=== PATIENT | male | born 1940 | race Caucasian/White ===

== ENCOUNTER 2024-03-26 08:17 | Day surgery (SDC) | payer MEDICARE, OTHER ==
[2024-03-25 14:46] LABS: BASOPHILS # (AUTO) 0.1 X10'3 (0-0.2); BASOPHILS % (AUTO) 0.8 % (0-1); EOSINOPHILS # (AUTO) 0.3 X10'3 (0-0.9); EOSINOPHILS % (AUTO) 3.8 % (0-6); LYMPHOCYTES # (AUTO) 1.8 X10'3 (1.1-4.8); MEAN CORPUSCULAR HEMOGLOBIN 32.1 PG (27.0-31.0); MEAN CORPUSCULAR HGB CONC 33.4 g/dL (33.0-36.5); MEAN CORPUSCULAR VOLUME 96.2 FL (78-98); MEAN PLATELET VOLUME 8.6 FL (7.4-10.4); MONOCYTES # (AUTO) 0.7 X10'3 (0-0.9); MONOCYTES % (AUTO) 10.4 % (2-12); PRE OP HEMOGLOBIN 17.4 g/dL (14.0-17.9); PRE OP PLATELET COUNT 252 X10'3 (140-440); PRE OP WHITE BLOOD COUNT 6.8 10'3 (4.8-10.8)
[2024-03-25 14:57] LABS: ALBUMIN 3.5 G/DL (3.4-5.0); ALBUMIN/GLOBULIN RATIO 0.9 (1.1-1.5); ALKALINE PHOSPHATASE 67 IU/L (46-116); BLOOD UREA NITROGEN 15 MG/DL (7-18); BUN/CREATININE RATIO 12.7 (10.0-20.0); CALCIUM 9.3 MG/DL (8.5-10.1); CHLORIDE 106 MMOL/L (99-107); CREATININE 1.18 MG/DL (0.60-1.10); PRE OP ALT 17 U/L (30-65); PRE OP ANION GAP 4 (8-16); PRE OP AST 14 U/L (10-37); PRE OP BILIRUB, TOTAL 0.5 MG/DL (0.0-1.0); PRE OP GLUCOSE 112 MG/DL (70-104); PRE OP POTASSIUM 4.7 MMOL/L (3.4-5.1); PRE OP SODIUM 142 MMOL/L (135-145); TOTAL CARBON DIOXIDE 31.7 MMOL/L (24-32); TOTAL PROTEIN 7.2 G/DL (6.4-8.2); eCRCL 49 ML/MIN; eGFR 59 ML/MIN
[2024-03-26] VITALS (7 sets, daily range): BP systolic 122–146; BP diastolic 72–86; PULSE 62–73; RESP 12–16; TEMP 98.1; O2SAT 95–100
[~2024-03-26] VITALS: Ht 177.8 cm; Wt 68.9 kg
[~2024-03-26 08:17] MED LIST: ALBU18HF2 INH; FINA5TAB11 PO; FLO0.4C PO; FLUT1BLS4 INH
[2024-03-26] MEDS ORDERED: morphine 4 MG/ML inj SYRINge IV PRN (08:20)
[2024-03-26] MEDS ORDERED: labetalol 20mg/4ml (5mg/ml) syringe IV PRN (08:20)
[2024-03-26] MEDS ORDERED: morphine 2 MG/ML inj. syringe IV PRN (08:20)
[2024-03-26] MEDS ORDERED: proCHLORperazine 10 MG/2 ml inj IV PRN (08:20)
[2024-03-26] MEDS ORDERED: ringers solution, lacted 1,000 ML IV SCH (08:20)
[2024-03-26] MEDS ORDERED: ondansetron/PF 4mg/2ml inj IV PRN (08:20)
[2024-03-26] MEDS ORDERED: meperidine/PF 25mg/ml syringe IV PRN ×3 (08:20)
[2024-03-26] MEDS ORDERED: enalaprilat dihydrate 2.5mg/2ml vial IV PRN (08:20)
[2024-03-26] MEDS: famotidine 20mg tablet PO ONE (09:23)
[2024-03-26] MEDS: ringers solution, lacted 1,000 ML IV SCH (09:24)
[2024-03-26] MEDS ORDERED: sevoflurane 250ml liquid IH ONE (11:08)
[2024-03-26] MEDS ORDERED: fentaNYL/PF 50MCG/1 ML 2ML syringe ONE (11:15)
[2024-03-26] MEDS ORDERED: midazolam 1 mg/ML 2ml injection ONE (11:16)
[2024-03-26] MEDS ORDERED: ondansetron/PF 4mg/2ml inj ONE ×2 (12:33→12:42)
[2024-03-26] MEDS ORDERED: LIDOcaine 2% (20mg/ml) 5ml vial ONE (12:33)
[2024-03-26] MEDS ORDERED: propofol inj 20 ML IV ONE (12:33)
== END 2024-03-26 13:47 | disposition home or self-care (01) ==
LOC: PAS 08:17
PROVIDERS: ATTEND Internal Medicine Critical Care Medicine
DX: R22.2 Localized swelling, mass and lump, trunk (principal); E11.9 Type 2 diabetes mellitus without complications; J43.9 Emphysema, unspecified; I50.9 Heart failure, unspecified; Z87.891 Personal history of nicotine dependence; Z86.73 Personal history of transient ischemic attack (TIA), and cerebral infarction without residual deficits; Z79.899 Other long term (current) drug therapy; Z98.890 Other specified postprocedural states
CPT/HCPCS: 31628; 31629; 31653; 36415; 71250; 80053; 82948; 85025; 88341; 94760; A4618; J1100; J2003; J2250; J2405; J2704; J2710; J3010; J3490; J7120; Z7506; Z7508; Z7512; Z7610; 31622; 31624; 31625; 31626; 31627; 31654; 88173; 88305; 88342

== ENCOUNTER 2024-08-04 12:27 | Outpatient (CLI) | payer MEDICARE, OTHER ==
[~2024-08-04 12:27] MED LIST changes: -FLO0.4C PO; +TAMS-55 PO
[2024-08-04 13:41] LABS: BILIRUBIN,URINE NEGATIVE (Neg); CLARITY,URINE CLEAR (Clear); COLOR,URINE YELLOW (Yellow); GLUCOSE, URINE NEGATIVE (Neg); KETONES,URINE NEGATIVE (Neg); LEUKOCYTE ESTERASE ,URINE NEGATIVE (Neg); NITRITES, URINE NEGATIVE (Neg); OCCULT BLOOD,URINE NEGATIVE (Neg); PROTEIN,URINE NEGATIVE (Neg); UROBILINOGEN,URINE 0.2 E.U/dL (0.2-1.0)
[2024-08-04 13:43] LABS: UA COLLECTION TYPE CLN CATCH MIDSTREAM
[2024-08-04 13:44] LABS: BASOPHILS % (AUTO) 0.4 % (0-1); EOSINOPHILS # (AUTO) 0.1 X10'3 (0-0.9); EOSINOPHILS % (AUTO) 1.3 % (0-6); LYMPHOCYTES # (AUTO) 1.9 X10'3 (1.1-4.8); MEAN CORPUSCULAR HEMOGLOBIN 31.9 PG (27.0-31.0); MEAN CORPUSCULAR HGB CONC 32.8 g/dL (33.0-36.5); MEAN CORPUSCULAR VOLUME 97.5 FL (78-98); MEAN PLATELET VOLUME 8.3 FL (7.4-10.4); MONOCYTES # (AUTO) 0.8 X10'3 (0-0.9); MONOCYTES % (AUTO) 8.9 % (2-12); NEUTROPHILS # (AUTO) 6.2 X10'3 (1.8-7.7); NEUTROPHILS % (AUTO) 68.4 % (42-75); PRE OP HEMATOCRIT 49.4 % (42.0-52.0); PRE OP HEMOGLOBIN 16.2 g/dL (14.0-17.9); PRE OP PLATELET COUNT 344 X10'3 (140-440); PRE OP WHITE BLOOD COUNT 9.1 10'3 (4.8-10.8); RED BLOOD COUNT 5.07 X10'6 (4.70-6.10); RED CELL DISTRIBUTION WIDTH 14.2 % (11.5-14.5)
[2024-08-04 13:52] LABS: PRE OP PROTIME 10.6 SECONDS (9.0-12.0)
[2024-08-04 13:58] LABS: ALBUMIN 3.2 G/DL (3.4-5.0); ALBUMIN/GLOBULIN RATIO 0.7 (1.1-1.5); ALKALINE PHOSPHATASE 90 IU/L (46-116); BLOOD UREA NITROGEN 16 MG/DL (7-18); BUN/CREATININE RATIO 17.2 (10.0-20.0); CALCIUM 8.9 MG/DL (8.5-10.1); CHLORIDE 106 MMOL/L (99-107); CREATININE 0.93 MG/DL (0.60-1.10); PRE OP ALT 25 U/L (30-65); PRE OP ANION GAP 3 (8-16); PRE OP AST 14 U/L (10-37); PRE OP BILIRUB, TOTAL 0.3 MG/DL (0.0-1.0); PRE OP GLUCOSE 113 MG/DL (70-104); PRE OP POTASSIUM 4.4 MMOL/L (3.4-5.1); PRE OP SODIUM 141 MMOL/L (135-145); TOTAL CARBON DIOXIDE 32.2 MMOL/L (24-32); TOTAL PROTEIN 7.7 G/DL (6.4-8.2); eGFR 78 ML/MIN
[2024-08-04 14:07] LABS: ABG BASE EXCESS -1.5 mmol/L (-2.0-3.0); ABG HCO3 22.3 mmol/L (21.0-28.0); ABG OXYGEN SATURATION 92.7 % (94.0-98.0); ABG PCO2 (T) 35.2 mmHg (35.0-48.0); ABG PO2 (T) 65.4 mmHg (83.0-108.0); ALLEN'S TEST POSITIVE; FCOHb 0.6 % (0.5-1.5); FHHb 7.2 % (0.0-5.0); FMetHb 0.3 % (0.0-1.5); FO2Hb 91.9 % (94.0-98.0); MODE ROOM AIR; TOTAL HEMOGLOBIN 15.9 G/dl (13.5-17.5)
== END 2024-08-04 23:59 | disposition home or self-care (01) ==
LOC: LAB 12:27 → EDSTATUS 08-13 09:45
PROVIDERS: ATTEND Surgery
DX: Z01.818 Encounter for other preprocedural examination (principal); D38.1 Neoplasm of uncertain behavior of trachea, bronchus and lung; R07.9 Chest pain, unspecified
CPT/HCPCS: 36415; 36600; 71046; 80053; 81003; 82803; 85018; 85025; 85610; 85730; 86885; 86900; 86901

== ENCOUNTER 2024-08-30 05:33 | Inpatient (IN) | payer MEDICARE, OTHER ==
[2024-08-30] VITALS (34 sets, daily range): BP systolic 125–152; BP diastolic 55–75; PULSE 61–122; RESP 10–24; TEMP 98.1; O2SAT 83–100
[~2024-08-30] VITALS: Ht 177.8 cm; Wt 70.3 kg
[2024-08-30] MEDS: ringers solution, lacted 1,000 ML IV SCH ×3 (06:20→21:30)
[2024-08-30] MEDS: famotidine 20mg tablet PO ONE (06:20)
[2024-08-30] MEDS: ceFAZolin 2gm in dextrose, iso 50 ML IV ONE (06:21)
[2024-08-30 06:39] LABS: BASOPHILS % (AUTO) 0.7 % (0-1); EOSINOPHILS # (AUTO) 0.2 X10'3 (0-0.9); EOSINOPHILS % (AUTO) 4.7 % (0-6); HEMATOCRIT 49.2 % (42.0-52.0); HEMOGLOBIN 16.1 g/dl (14.0-17.9); LYMPHOCYTES # (AUTO) 1.6 X10'3 (1.1-4.8); LYMPHOCYTES % (AUTO) 30.1 % (21-51); MEAN CORPUSCULAR HEMOGLOBIN 31.5 PG (27.0-31.0); MEAN CORPUSCULAR HGB CONC 32.7 g/dL (33.0-36.5); MEAN CORPUSCULAR VOLUME 96.2 FL (78-98); MEAN PLATELET VOLUME 8.5 FL (7.4-10.4); MONOCYTES # (AUTO) 0.6 X10'3 (0-0.9); MONOCYTES % (AUTO) 12.3 % (2-12); NEUTROPHILS # (AUTO) 2.7 X10'3 (1.8-7.7); NEUTROPHILS % (AUTO) 52.2 % (42-75); PLATELET COUNT 241 X10'3 (140-440); RED BLOOD COUNT 5.11 X10'6 (4.70-6.10); RED CELL DISTRIBUTION WIDTH 14.5 % (11.5-14.5); WHITE BLOOD COUNT 5.3 X10'3 (4.5-11.0)
[2024-08-30] MEDS ORDERED: BUPIVAcaine 2.5mg/ml inj 50ml vial (contains preservative) ONE (06:42)
[2024-08-30] MEDS ORDERED: INDOCYANINE GREEN 25 MG/10 ML VIAL IV ONE (06:42)
[2024-08-30] MEDS ORDERED: BUPIVACAINE liposomal/PF 13.3 MG/ML 10mL vial IM ONE (06:43)
[2024-08-30 06:56] LABS: APTT 26 SECONDS (22-32); PROTHROMBIN TIME 10.4 SECONDS (9.0-12.0)
[2024-08-30 07:03] LABS: ALANINE AMINOTRANSFERASE 19 U/L (12-78); ALBUMIN 3.3 G/DL (3.4-5.0); ALKALINE PHOSPHATASE 77 IU/L (46-116); ANION GAP 10 (8-16); ASPARTATE AMINO TRANSFERASE 11 U/L (10-37); BILIRUBIN,TOTAL 0.5 MG/DL (0.1-1.0); BLOOD UREA NITROGEN 16 MG/DL (7-18); CALCIUM 8.5 MG/DL (8.5-10.1); CHLORIDE 106 MMOL/L (99-107); CREATININE 0.89 MG/DL (0.60-1.10); GLUCOSE 107 MG/DL (70-104); POTASSIUM 4.5 MMOL/L (3.5-5.1); SODIUM 144 MMOL/L (135-145); TOTAL CARBON DIOXIDE 27.8 MMOL/L (24-32); TOTAL PROTEIN 6.5 G/DL (6.4-8.2); eCRCL 66 ML/MIN; eGFR 82 ML/MIN
--- NOTE | 2024-08-30 08:20 | RADIOLOGY REPORT ---
CLINICAL INFORMATION: Preoperative examination. Suspicious pulmonary nodule in the right lung apex. TECHNIQUE: Axial CT imaging of the chest was performed without IV contrast. Sagittal and coronal ref ormatted images were made, stored and reviewed. Evaluation is limited without IV contrast. One or mor e of the following dose reduction techniques were used: Automated exposure control. Adjustment of mA and/or kV according to patient size. CTDIvol = 11.68 mGy DLP = 456.62 mGy-cm COMPARISON: CT CT CHEST ION on DOS: 03/25/24, CT CHEST W/O CONTRAST on DOS: 10/17/23 FINDINGS: Aorta: Moderate to marked atherosclerotic calcification. No aneurysm. Cardiac: Heart size is within normal limits. Dense coronary artery calcification. Mediastinum/daria: Right lower paratracheal lymph nodes measure up to 0.8 cm in short axis dimension, with normal reniform shape and fatty daria, likely reactive lymph nodes. Calcified subcarinal and righ t hilar lymph nodes, may be seen with sequelae of granulomatous disease. Lungs: Spiculated nodule in the right lung apex measuring up to 1.7 cm, with spiculations extending t o the anterior and superior pleural surfaces. Marked emphysematous changes. There are scattered calci fied granulomas. Noncalcified nodule in the right lower lobe measures up to 5 mm (series 3, image 54) . Chest wall: No mass or other abnormality. Upper abdomen: Calcified granulomas in the liver and spleen. Small hiatal hernia. Bones: No fracture or suspicious intraosseous lesions. IMPRESSION: 1. Spiculated nodule in the right lung apex. 2. Scattered calcified granulomas. Small noncalcified nodule in the right lower lobe as described abo ve is indeterminate. 3. Additional nonacute findings as detailed above.
[2024-08-30 08:40] LABS: BILIRUBIN,URINE NEGATIVE (Neg); CLARITY,URINE CLEAR (Clear); COLOR,URINE YELLOW (Yellow); GLUCOSE, URINE NEGATIVE (Neg); KETONES,URINE NEGATIVE (Neg); LEUKOCYTE ESTERASE ,URINE NEGATIVE (Neg); NITRITES, URINE NEGATIVE (Neg); OCCULT BLOOD,URINE NEGATIVE (Neg); PROTEIN,URINE NEGATIVE (Neg); UROBILINOGEN,URINE 0.2 E.U/dL (0.2-1.0)
[2024-08-30 08:49] LABS: UA COLLECTION TYPE VOIDED
[2024-08-30] MEDS ORDERED: midazolam 1 mg/ML 2ml injection ONE (09:19)
[2024-08-30] MEDS ORDERED: fentaNYL /PF 50mcg/ml 5ml ampule ONE (09:19)
[2024-08-30] MEDS ORDERED: propofol inj 20 ML IV ONE (09:21)
[2024-08-30] MEDS ORDERED: LIDOcaine 2% (20mg/ml) 5ml vial ONE (09:21)
[2024-08-30] MEDS ORDERED: sevoflurane 250ml liquid IH ONE (09:22)
[2024-08-30] MEDS ORDERED: dexamethasone sod phosphate 4mg/ml inj. ONE (09:22)
[2024-08-30] MEDS ORDERED: rocuronium 10mg/ml inj IV ONE ×2 (09:22→13:13)
[2024-08-30] MEDS ORDERED: morphine 4 MG/ML inj SYRINge IV PRN (09:30)
[2024-08-30] MEDS ORDERED: enalaprilat 1.25mg/ml 2ml vial IV PRN (09:30)
[2024-08-30] MEDS ORDERED: meperidine/PF 25mg/ml syringe IV PRN ×3 (09:30)
[2024-08-30] MEDS ORDERED: ondansetron/PF 4mg/2ml inj IV PRN ×2 (09:30→13:30)
[2024-08-30] MEDS ORDERED: labetalol 20mg/4ml (5mg/ml) syringe IV PRN (09:30)
[2024-08-30] MEDS ORDERED: proCHLORperazine 10 MG/2 ml inj IV PRN (09:30)
[2024-08-30] MEDS ORDERED: morphine 2 MG/ML inj. syringe IV PRN (09:30)
[2024-08-30] MEDS ORDERED: methylPREDNISolone sod succ 125mg/2ml vial ONE (10:30)
[2024-08-30] MEDS ORDERED: albumin (Human) 5% 250ml 250 ML IV ONE (10:34)
[2024-08-30] MEDS: BUPIVAcaine/PF 2.5 mg/ml (0.25%) 30ml vial IJ ONE (10:48)
[2024-08-30] MEDS ORDERED: sugammadex 200mg/2ml injection IV ONE (13:06)
[2024-08-30] MEDS ORDERED: acetaminophen 1,000mg/100ml IV 100 ML IV ONE (13:09)
--- NOTE | 2024-08-30 13:22 | OPERATIVE REPORT ---
Operative Report Providers to CC ~ Date of Procedure: Aug 30, 2024 Pre-Operative Diagnosis: rul mass Post-Operative Diagnosis SAME as PRE-Op Procedure Performed robo rul/robo node dissection/robo rll wedge x 2/chest tube placement Surgeon: kasey Aleman none Anesthesiologist: Dale Macedo Type of Anesthesia: General Findings: rul nsclc Estimated Blood Loss: 200 ml Specimen Removed: multiple PATI ANDERSON MD Aug 30, 2024 13:22
[2024-08-30] MEDS ORDERED: metoclopramide 5 mg/ml inj IV PRN (13:30)
[2024-08-30] MEDS ORDERED: HYDROcodone/acetaminophen 10/325mg tab PO PRN (13:30)
[2024-08-30] MEDS ORDERED: potassium Cl 20mEq in D5-NS 1,000 ML IV SCH (13:30)
[2024-08-30] MEDS ORDERED: fentaNYL/PF 50MCG/1 ML 2ML syringe IV PRN (13:30)
[2024-08-30] MEDS ORDERED: albuterol 2.5 MG/3 ML nebule NEB PRN (13:30)
[2024-08-30] MEDS: fentaNYL/PF 50MCG/1 ML 2ML syringe IV PRN (13:34)
[2024-08-30 13:38] LABS: ABG BASE EXCESS -5.6 mmol/L (-2.0-3.0); ABG HCO3 23.2 mmol/L (21.0-28.0); ABG OXYGEN SATURATION 96.3 % (94.0-98.0); ABG PCO2 (T) 52.5 mmHg (35.0-48.0); ABG PH (T) 7.249 (7.350-7.450); ABG PO2 (T) 86.7 mmHg (83.0-108.0); FCOHb 1.3 % (0.5-1.5); FHHb 3.6 % (0.0-5.0); FLOW 7 L/min; FMetHb 0.1 % (0.0-1.5); MODE Simple Mask; PATIENT TEMPERATURE 34.6; TOTAL HEMOGLOBIN 15.6 G/dl (13.5-17.5)
[2024-08-30] MEDS: albuterol 2.5 MG/3 ML nebule NEB ONE (13:43)
[2024-08-30] MEDS: sodium bicarbonate (8.4%) 1 mEq/ml syringe IV ONE (13:45)
[2024-08-30] MEDS: LORazepam 2 mg/ml vial IV ONE (13:45)
[2024-08-30] MEDS: acetaminophen 1,000mg/100ml IV 100 ML IV ONE (13:53)
[2024-08-30] MEDS: fentaNYL/PF 50MCG/1 ML 2ML syringe ONE (13:53)
[2024-08-30] MEDS: ketorolac trometh 15mg/ml vial 15 MG/ML ML IV SCH (13:54)
[2024-08-30] MEDS: sodium bicarbonate (8.4%) inj. 1 MEQ/ML ML ONE (13:57)
--- NOTE | 2024-08-30 14:01 | RADIOLOGY REPORT ---
CLINICAL INFORMATION: Status post surgery. Right lung mass. TECHNIQUE: Single AP portable chest radiograph was obtained. COMPARISON: XR CHEST 1 VIEW on DOS: 11/13/23 FINDINGS: Lungs: Volume loss in the right lung consistent with recent right lung surgery, with associated media stinal shift to the right. Scattered areas of atelectasis in both lungs, right greater than left. The re is a chest tube in place extending to the right lung apex. No definite pneumothorax visualized. Po ssible small right pleural fluid collection in the right costophrenic angle. Cardiac: Heart size is within normal limits. Pulmonary vasculature: Unremarkable. Mediastinum/daria: Unremarkable. Bones: No acute osseous abnormality identified. Other: Prominent subcutaneous emphysema involving the neck soft tissues bilaterally and in the right chest wall. IMPRESSION: 1. Postsurgical changes consistent with recent right lung surgery with right chest tube in place. No definite pneumothorax visualized. 2. Suspected small right pleural fluid collection in the right costophrenic angle. 3. Prominent subcutaneous emphysema as described above.
[2024-08-30 14:51] LABS: ABG BASE EXCESS -3.9 mmol/L (-2.0-3.0); ABG HCO3 23.3 mmol/L (21.0-28.0); ABG OXYGEN SATURATION 93.7 % (94.0-98.0); ABG PH (T) 7.298 (7.350-7.450); ABG PO2 (T) 70.4 mmHg (83.0-108.0); FCOHb 1.4 % (0.5-1.5); FHHb 6.2 % (0.0-5.0); FLOW 3 L/min; FMetHb 0.3 % (0.0-1.5); FO2Hb 92.1 % (94.0-98.0); MODE NC; PATIENT TEMPERATURE 35.9; TOTAL HEMOGLOBIN 15.5 G/dl (13.5-17.5)
[2024-08-30] MEDS: albuterol 2.5 MG/3 ML nebule NEB SCH (14:54)
[2024-08-30] MEDS: HYDROmorphone inj. 0.5 MG/0.5 ML DISP.SYRIN IV PRN (15:29)
[2024-08-30] MEDS: ceFAZolin/D5W- 1GM premix 50 ML IV SCH (17:41)
[2024-08-30] MEDS: gabapentin 300mg capsule PO SCH (19:15)
[2024-08-30] MEDS: HYDROcodone/acetaminophen 10/325mg tab PO PRN (21:22)
[2024-08-31] VITALS (33 sets, daily range): BP systolic 109–141; BP diastolic 53–86; PULSE 61–86; RESP 10–21; TEMP 98–99.3; O2SAT 89–100
[2024-08-31 02:32] LABS: ALANINE AMINOTRANSFERASE 21 U/L (12-78); ALKALINE PHOSPHATASE 66 IU/L (46-116); ANION GAP 5 (8-16); ASPARTATE AMINO TRANSFERASE 17 U/L (10-37); BILIRUBIN,TOTAL 0.3 MG/DL (0.1-1.0); BLOOD UREA NITROGEN 12 MG/DL (7-18); BUN/CREATININE RATIO 13.6 (10.0-20.0); CALCIUM 7.9 MG/DL (8.5-10.1); CHLORIDE 103 MMOL/L (99-107); CREATININE 0.88 MG/DL (0.60-1.10); GLUCOSE 184 MG/DL (70-104); MAGNESIUM 1.8 MG/DL (1.5-2.4); PHOSPHORUS 3.8 MG/DL (2.3-4.5); POTASSIUM 4.9 MMOL/L (3.5-5.1); SODIUM 135 MMOL/L (135-145); TOTAL CARBON DIOXIDE 26.7 MMOL/L (24-32); TOTAL PROTEIN 6.1 G/DL (6.4-8.2); eCRCL 65 ML/MIN; eGFR 83 ML/MIN
[2024-08-31 02:42] LABS: BASOPHILS % (AUTO) 0.3 % (0-1); EOSINOPHILS % (AUTO) 0 % (0-6); HEMATOCRIT 44.2 % (42.0-52.0); HEMOGLOBIN 14.6 g/dl (14.0-17.9); LYMPHOCYTES # (AUTO) 0.5 X10'3 (1.1-4.8); LYMPHOCYTES % (AUTO) 4.4 % (21-51); MEAN CORPUSCULAR HEMOGLOBIN 31.9 PG (27.0-31.0); MEAN CORPUSCULAR HGB CONC 33.1 g/dL (33.0-36.5); MEAN CORPUSCULAR VOLUME 96.3 FL (78-98); MEAN PLATELET VOLUME 8.9 FL (7.4-10.4); MONOCYTES # (AUTO) 0.6 X10'3 (0-0.9); MONOCYTES % (AUTO) 5.2 % (2-12); NEUTROPHILS # (AUTO) 10.4 X10'3 (1.8-7.7); NEUTROPHILS % (AUTO) 90.1 % (42-75); PLATELET COUNT 216 X10'3 (140-440); RED BLOOD COUNT 4.59 X10'6 (4.70-6.10); WHITE BLOOD COUNT 11.5 X10'3 (4.5-11.0)
--- NOTE | 2024-08-31 04:46 | OPERATIVE REPORT ---
DATE OF SURGERY: 08/30/2024 DICTATING PHYSICIAN: Max Giraldo MD PREOPERATIVE DIAGNOSIS: Enlarging right upper lobe mass. POSTOPERATIVE DIAGNOSIS: Enlarging right upper lobe mass. PROCEDURES PERFORMED: * Robotic-assisted thoracoscopic right upper lobectomy. * Robotic-assisted thorascopic node dissection. * Robotic-assisted lobectomy resection x 2. * Chest tube placement. SURGEON: Max Giraldo MD INTERNAL SPECIALIST: Kevin. ANESTHESIA: General/Dr. Macedo. DRAINS: Chest tube x 1. INDICATIONS FOR OPERATION: An 83-year-old male who had an enlarging right upper lobe mass, taken to surgery after was suspicious for malignancy. INTRAOPERATIVE FINDINGS: The patient had a right upper lobe mass. Frozen section revealed non-small cell lung cancer. The patient also additionally had spots in the right lower lobe requiring a wedge resection x 2. DESCRIPTION OF PROCEDURE: The patient was placed supine on the operating table. After induction of general anesthesia and placement of endotracheal tube, the patient was turned in the left lateral decubitus position, prepped and draped. Incision was made in the posterior axillary line approximately to the level of the seventh intercostal space. A port was placed after the lung was deflated. An additional port was placed anteriorly and 2 ports placed posteriorly under fluoroscopic vision. An assist port was placed inferiorly. Robot was then brought to the field. Camera port docked. Camera placed, camera targeted. Additional ports were then docked and instruments placed. Chest was then explored. Right lower lobe was then retracted cephalad. Inferior pulmonary ligament was taken down. Lungs were then retracted anteriorly. Pleura was incised. Station 7 nodes identified and sent to pathology for evaluation. was somewhat calcified. The node was subsequently identified and sent to pathology for evaluation as well. Lungs were then retracted inferiorly. Mediastinal pleura was then incised and station 2 and 4 nodes identified and sent to pathology for evaluation. Lungs were then retracted posteriorly and right upper lobe pulmonary vein identified. Attention was then turned to the fissure where the PA was identified after fissures. Posterior fissure was then divided using multiple firings of Endo-JEANNINE and blue load. Posterior segment branch was then identified, isolated, and divided with the white load. Attention was then turned to the anterior apical trunk, identified, isolated and divided using multiple firings of white load. The patient had enlarged nodes in station 12 in the right upper lobe. These were removed and sent to pathology. Right upper lobe bronchus was then divided using green stapler #45. Minor fissure was then divided using multiple firings of blue load. The vein was identified, isolated, divided using a white load. Upper lobe was then from the lower lobe. There were multiple nodules in the right lower lobe, removed with multiple firings of blue lobe. Right lower lobectomy resections x 2 were performed. Right upper lobe was then placed in an Endobag in a lithotomy position. Robotic instruments were then removed, robot undocked from the field. Upper lobe was brought out through the assist port after it was extended. Chest was irrigated with large amount of antibiotic-containing solution. Tisseel was then used through the staple lines. Intercostal block was then performed using Exparel. A #20 chest tubes was then placed and directed apically. Lungs were then reexpanded. Incisions were then closed in layers. Chest was attached to Pleur-evac and the patient was transferred to recovery in stable condition after reversing from general anesthesia. Max Giraldo MD TID: [id number] RECEIPT: [id number] GUILLE/ADRIANNE/CJ
--- NOTE | 2024-08-31 05:40 | RADIOLOGY REPORT ---
EXAM: XR Chest, 1 View CLINICAL INDICATION: POST OP TECHNIQUE: Frontal view of the chest. COMPARISON: DI CHEST,SINGLE VIEW on DOS: 08/30/24, XR CHEST 1 VIEW on DOS: 11/13/23 FINDINGS: LUNGS AND PLEURAL SPACES: Bibasilar atelectasis or pneumonia. HEART: Unremarkable. No cardiomegaly. MEDIASTINUM: Unremarkable. Normal mediastinal contour. BONES/JOINTS: Unremarkable. No acute fracture. SOFT TISSUES: Right soft tissue emphysema. TUBES, LINES AND DEVICES: Right-sided chest tube. Small apical pneumothorax. OTHER FINDINGS: . . IMPRESSION: 1. Bibasilar atelectasis or pneumonia. 2. Right-sided chest tube. Small apical pneumothorax.
[2024-08-31] MEDS: furosemide 20 MG/2 ML vial IV ONE (11:35)
--- NOTE | 2024-08-31 18:14 | PROGRESS NOTE ---
Progress Note ID Providers to CC ~ Progress Note Progress Note: PAIN IMPROVING/VSS/LUNGS-SMALL LEAK/LABS NOTED A/P 1. S/P RUL-DOING WELL/CONT SUCTION PATI ANDERSON MD Aug 31, 2024 18:14
--- NOTE | 2024-08-31 22:56 | RADIOLOGY REPORT ---
Clinical History CHEST TUBE PLACEMENT, LUNG VIEWS Comparison CXR on 08/31/2024, 3 images. Technique: frontal chest x-ray Without Contrast NADEEN ARBOLEDA, [id number] Findings: Heart - normal lungs - no consolidation. right-sided chest tube. Right basilar pneumothorax bones - no acute fracture. Other- subcutaneous emphysema in the right chest Impression: 1. Right-sided chest tube. Small right basilar pneumothorax similar to prior examination 2. Subcutaneous emphysema in the right chest wall. This report was electronically signed by Gael Rivero MD on 08/31/2024 10:54:12 PM.
[2024-09-01] VITALS (21 sets, daily range): BP systolic 113–147; BP diastolic 68–82; PULSE 61–86; RESP 16–25; TEMP 97.6–98.2; O2SAT 92–96
[2024-09-01 06:19] LABS: BASOPHILS % (AUTO) 0.1 % (0-1); EOSINOPHILS % (AUTO) 0.2 % (0-6); HEMATOCRIT 45.7 % (42.0-52.0); LYMPHOCYTES # (AUTO) 1.3 X10'3 (1.1-4.8); LYMPHOCYTES % (AUTO) 10.6 % (21-51); MEAN CORPUSCULAR HEMOGLOBIN 31.4 PG (27.0-31.0); MEAN CORPUSCULAR HGB CONC 32.8 g/dL (33.0-36.5); MEAN CORPUSCULAR VOLUME 95.8 FL (78-98); MEAN PLATELET VOLUME 9.4 FL (7.4-10.4); NEUTROPHILS # (AUTO) 9.8 X10'3 (1.8-7.7); NEUTROPHILS % (AUTO) 81.1 % (42-75); PLATELET COUNT 215 X10'3 (140-440); RED BLOOD COUNT 4.77 X10'6 (4.70-6.10); WHITE BLOOD COUNT 12.1 X10'3 (4.5-11.0)
--- NOTE | 2024-09-01 06:35 | RADIOLOGY REPORT ---
EXAM: XR Chest, 1 View CLINICAL INDICATION: POST OP TECHNIQUE: Frontal view of the chest. COMPARISON: DI CHEST,SINGLE VIEW on DOS: 08/31/24, DI CHEST,SINGLE VIEW on DOS: 08/31/24, DI CHEST,SI NGLE VIEW on DOS: 08/30/24, XR CHEST 1 VIEW on DOS: 11/13/23 FINDINGS: LUNGS AND PLEURAL SPACES: See below. HEART: Unremarkable. No cardiomegaly. MEDIASTINUM: Unremarkable. Normal mediastinal contour. BONES/JOINTS: Unremarkable. No acute fracture. SOFT TISSUES: Redemonstration of soft tissue emphysema of the right chest wall. TUBES, LINES AND DEVICES: Right-sided chest tube. No pneumothorax. OTHER FINDINGS: . . . IMPRESSION: Right-sided chest tube. No pneumothorax.
[2024-09-01 06:39] LABS: ALANINE AMINOTRANSFERASE 21 U/L (12-78); ALBUMIN 3.2 G/DL (3.4-5.0); ALKALINE PHOSPHATASE 71 IU/L (46-116); ANION GAP 4 (8-16); ASPARTATE AMINO TRANSFERASE 18 U/L (10-37); BILIRUBIN,TOTAL 0.6 MG/DL (0.1-1.0); BLOOD UREA NITROGEN 18 MG/DL (7-18); BUN/CREATININE RATIO 23.7 (10.0-20.0); CALCIUM 8.5 MG/DL (8.5-10.1); CHLORIDE 103 MMOL/L (99-107); CREATININE 0.76 MG/DL (0.60-1.10); GLUCOSE 133 MG/DL (70-104); PHOSPHORUS 1.8 MG/DL (2.3-4.5); SODIUM 139 MMOL/L (135-145); TOTAL CARBON DIOXIDE 31.6 MMOL/L (24-32); TOTAL PROTEIN 6.4 G/DL (6.4-8.2); eCRCL 76 ML/MIN; eGFR > 90 ML/MIN
--- NOTE | 2024-09-01 12:01 | PATHOLOGY REPORT ---
[facility] [address] [place] [address] SURGICAL PATHOLOGY REPORT CaseNumber: [id number] Surgeon:Max Giraldo M.D. CLINICAL INFORMATION CLINICAL INFORMATION: Right lung cancer. DIAGNOSIS DIAGNOSIS: A.LYMPH NODES, STATION 7R, SURGICAL RESECTION - BENIGN ANTHRACOTIC LYMPH NODES (0/13) - ASSOCIATED FRAGMENTS OF NECROTIC TISSUE DIAGNOSIS: B.MASS, LUNG, RIGHT LOWER LOBE, WEDGE RESECTION - NODULE OF DYSTROPHIC CALCIFICATION (0.4 CM) - NO TUMOR INVOLVEMENT IS IDENTIFIED DIAGNOSIS: C.LYMPH NODES, STATION 11R, SURGICAL EXCISION - BENIGN ANTHRACOTIC LYMPH NODES (0/2) DIAGNOSIS: D.LYMPH NODES, STATIONS 2R AND 4R, SURGICAL EXCISI - BENIGN ANTHRACOTIC LYMPH NODES (0/12) DIAGNOSIS: E.LYMPH NODES, STATION 12R, SURGICAL EXCISION - BENIGN ANTHRACOTIC LYMPH NODES (0/9) DIAGNOSIS: F.MASS, LUNG, RIGHT UPPER LOBE, SURGICAL LOBECTOMY - 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 LYMPH NODES, STATION 7R, SURGICAL RESECTION MICROSCOPIC DESCRIPTION: Reviewed are four H&E-stained slides showing sections of tissue that is larg shayy necrotic and associated with areas of dystrophic calcification. However, portions of anthracotic -type lymph node tissue are also noted that are viable. There is no tumor involvement (0/13). B. MASS, LUNG, RIGHT LOWER LOBE, WEDGE RESECTION MICROSCOPIC DESCRIPTION: Reviewed are two H&E-stained slides showing sections of lung tissue with are as of tissue necrosis associated with an area of dystrophic calcification (0.4 cm). No tumor involve ment is identified. C. LYMPH NODES, STATION 11R, SURGICAL EXCISION MICROSCOPIC DESCRIPTION: Reviewed is a single H&E-stained slide showing sections of fragments of anth racotic-type lymph node tissue that are free of tumor involvement (0/2). D. LYMPH NODES, STATIONS 2R AND 4R, SURGICAL EXCISI MICROSCOPIC DESCRIPTION: Reviewed are two H&E-stained slides showing sections of fragments of anthrac otic-type lymph node tissue that are free of tumor involvement (0/12). E. LYMPH NODES, STATION 12R, SURGICAL EXCISION MICROSCOPIC DESCRIPTION: Reviewed is a single H&E-stained slide showing sections of fragments of anth racotic-type lymph node tissue that are free of tumor involvement (0/9). F. MASS, LUNG, RIGHT UPPER LOBE, SURGICAL LOBECTOMY MICROSCOPIC DESCRIPTION: Reviewed are eight H&E-stained slides and the associated frozen section slid e. The grossly described tumor (F1, F6-7) shows an invasive well to moderately differentiated squamo us cell carcinoma associated with keratin production. There are areas of tumor degeneration and necr osis that have a geographic appearance. There are areas suspicious for small vessel involvement. Th ere are no clear features of large vessel involvement. The pleural surfaces are clear of involvement . Sections of the bronchial margin and hilar vascular resection margins as well as the closest stapl ed parenchymal resection margin (F2, F3, and F5) are clear of tumor involvement. Three hilar lymph n odes are clear of tumor involvement (F2, F4; 0/3). GROSS DESCRIPTION A. LYMPH NODES, STATION 7R, SURGICAL RESECTION GROSS DESCRIPTION: Received in a container of formalin labeled with the patient's name, number, and i dentified as "station 7 node (R) lung" is a 3.7 x 2 x 1.5 cm aggregate of irregularly shaped pieces o f pink-gonsalves to black tissue. Sectioning reveals areas of calcification. The specimen is entirely submi tted as A1-A4 following decalcification. B. MASS, LUNG, RIGHT LOWER LOBE, WEDGE RESECTION GROSS DESCRIPTION: Received in a container of formalin labeled with the patient's name, number, and " right lung lower lobe resection" is a 3 x 1 x 0.6 cm lung wedge closed by a row of surgical lucrecia. The staple line is removed and the margins are marked with black ink. Sectioning reveals a 1 x 0.7 x 0.8 cm calcification. The specimen is decalcified and submitted as B1.Received in the same contain er is a 3 x 1 x 0.8 cm lung wedge which is closed by a row of surgical lucrecia. The staple line is r emoved and the margins are marked with black ink. Sectioning reveals a 0.7 x 0.7 x 0.6 cm calcificat ion. The specimen is decalcified and submitted in B2.The time at which the specimen was removed was 1055. The time at which the specimen was placed in formalin was 1256. C. LYMPH NODES, STATION 11R, SURGICAL EXCISION GROSS DESCRIPTION: Received in a container of formalin labeled with the patient's name, number, and i dentified as "station 11 node (R)" is a 1.2 x 0.8 x 0.4 cm irregularly shaped piece of pink-gonsalves to bl ack tissue. The specimen is entirely submitted as C1. The time at which the specimen was removed was 1055. The time at which the specimen was placed in formalin was 1256. (arb) D. LYMPH NODES, STATIONS 2R AND 4R, SURGICAL EXCISI GROSS DESCRIPTION: Received in a container of formalin labeled with the patient's name, number, and i dentified as "station 2 and 4 nodes right lung" is an irregularly shaped excision of fat which measur es 2 x 1.5 x 1 cm. The specimen is sectioned and entirely submitted as D1-D2. The time at which the s pecimen was removed was 1055. The time at which the specimen was placed in formalin was 1256. E. LYMPH NODES, STATION 12R, SURGICAL EXCISION GROSS DESCRIPTION: Received in a container of formalin labeled with the patient's name, number, and i dentified as "station 12 right lung" is a 2 x 2.2 x 0.8 cm irregularly shaped piece of pink-gonsalves to bl ack tissue. The specimen is sectioned and entirely submitted as E1. The time at which the specimen wa s removed was 1055. The time at which the specimen was placed in formalin was 1256. F. MASS, LUNG, RIGHT UPPER LOBE, SURGICAL LOBECTOMY GROSS DESCRIPTION: Received unfixed from the operating room labeled with the patient's name, number, and "right upper lobe" is a 164 g right upper lobectomy specimen which measures 11.5 x 10 x 3 cm. The pleura is smooth, shiny, and red-brown. There is a row of surgical lucrecia running along one edge of the specimen 11 cm long. The specimen is sectioned at the time of surgery by Dr. Huerta to reveal 0. 7 x 1.5 x 1.5 cm lobulated henson-gonsalves tumor. The tumor is present 3.5 cm from the hilum and 3.5 cm from the stapled bronchial resection margin. The tumor is present 5.5 cm from the closest stapled parench ymal resection margin. A portion of the tumor is submitted for frozen section by Dr. Huerta. INTRAOPERATIVE CONSULTATION WITH FROZEN SECTION DIAGNOSIS BY Dr. Huerta at 1319: "Squamous cell carc inoma" (Performed at [facility] [address] [place] [address]) Sectioning the remainder of the specimen fails to reveal further discrete mass lesion. Sections are submitted as follows: F1) Frozen section remnantF2) Bronchial resection marginF3) Hilar vascular resection marginsF4) Saida r lymph node candidatesF5) Closest stapled parenchymal resection margin en faceF6-F7) TumorF8) Repres entative uninvolved lung parenchyma The time at which the specimen was removed was 1242. The time at which the specimen was placed in fo rmalin was not provided. SYNOPTIC REPORT SYNOPTIC TEXT: LUNG Specimen Procedure: Lobectomy Specimen Laterality: Right Tumor Tumor Focality: Single focus Tumor Site: Upper lobe of lung Tumor Size Invasive Tumor Size: 1.5 Centimeters (cm) Histologic Type: Invasive squamous cell carcinoma, keratinizing Spread Through Air Spaces (RACHELE): Not applicable Visceral Pleura Invasion: Not identified Direct Invasion of Other Structures: Not applicable (no other structures present) Treatment Effect: No known presurgical therapy Lymphatic and / or Vascular Invasion: Present - Possible small vessel involvement Margins Margin Status for Invasive Tumor: All margins negative for invasive tumor Closest Margin(s) to Invasive Tumor: Bronchial; Vascular Distance from Invasive Tumor to Closest Margin: 3.5 cm Margin Status for Non-Invasive Tumor: Not applicable Regional Lymph Nodes Lymph Node(s) from Prior Procedures: No known prior lymph node sampling performed Regional Lymph Node Status: All regional lymph nodes negative for tumor Number of Lymph Nodes Examined: 37 Deepali Site(s) Examined: 2R: Upper paratracheal; 4R: Lower paratracheal; 10R: Hilar; 11R: Interlobar; 12R-14R: Intrapulmonary; Right node(s) - 7R pTNM Classification (AJCC Version 9) pT Category: pT1b pN Category: pN0 CAP [facility] [address] Release SYNOPTIC TEXT: LUNG Specimen Procedure: Lobectomy Specimen Laterality: Right Tumor Tumor Focality: Single focus Tumor Site: Upper lobe of lung Tumor Size Invasive Tumor Size: 1.5 Centimeters (cm) Histologic Type: Invasive squamous cell carcinoma, keratinizing Spread Through Air Spaces (RACHELE): Not applicable Visceral Pleura Invasion: Not identified Direct Invasion of Other Structures: Not applicable (no other structures present) Treatment Effect: No known presurgical therapy Lymphatic and / or Vascular Invasion: Present - Possible small vessel involvement Margins Margin Status for Invasive Tumor: All margins negative for invasive tumor Closest Margin(s) to Invasive Tumor: Bronchial; Vascular Distance from Invasive Tumor to Closest Margin: 3.5 cm Margin Status for Non-Invasive Tumor: Not applicable Regional Lymph Nodes Lymph Node(s) from Prior Procedures: No known prior lymph node sampling performed Regional Lymph Node Status: All regional lymph nodes negative for tumor Number of Lymph Nodes Examined: 37 Deepali Site(s) Examined: 2R: Upper paratracheal; 4R: Lower paratracheal; 10R: Hilar; 11R: Interlobar; 12R-14R: Intrapulmonary; Right node(s) - 7R pTNM Classification (AJCC Version 9) pT Category: pT1b pN Category: pN0 CAP [facility] 2023 Q4 Release Electronically signed by: Dionte Huerta M.D. 09/01/2024 11:20:00 AM
--- NOTE | 2024-09-01 20:50 | PROGRESS NOTE ---
Progress Note ID Providers to CC ~ Progress Note Progress Note: doing well/ continue suction PATI ANDERSON MD Sep 01, 2024 20:50
[2024-09-02] VITALS (20 sets, daily range): BP systolic 116–159; BP diastolic 66–93; PULSE 68–91; RESP 11–20; TEMP 97–98.1; O2SAT 91–99
[2024-09-02 06:30] LABS: BASOPHILS % (AUTO) 0.4 % (0-1); EOSINOPHILS # (AUTO) 0.2 X10'3 (0-0.9); EOSINOPHILS % (AUTO) 1.3 % (0-6); HEMATOCRIT 48.9 % (42.0-52.0); HEMOGLOBIN 16.2 g/dl (14.0-17.9); LYMPHOCYTES # (AUTO) 1.4 X10'3 (1.1-4.8); MEAN CORPUSCULAR HEMOGLOBIN 31.9 PG (27.0-31.0); MEAN CORPUSCULAR VOLUME 96.7 FL (78-98); MEAN PLATELET VOLUME 9.2 FL (7.4-10.4); MONOCYTES # (AUTO) 0.9 X10'3 (0-0.9); MONOCYTES % (AUTO) 8.2 % (2-12); NEUTROPHILS # (AUTO) 8.6 X10'3 (1.8-7.7); NEUTROPHILS % (AUTO) 77.1 % (42-75); PLATELET COUNT 208 X10'3 (140-440); RED BLOOD COUNT 5.06 X10'6 (4.70-6.10); WHITE BLOOD COUNT 11.1 X10'3 (4.5-11.0)
--- NOTE | 2024-09-02 06:40 | RADIOLOGY REPORT ---
EXAM: XR Chest, 1 View CLINICAL INDICATION: POST OP TECHNIQUE: Frontal view of the chest. COMPARISON: DI CHEST,SINGLE VIEW on DOS: 09/01/24, DI CHEST,SINGLE VIEW on DOS: 08/31/24, DI CHEST,SI NGLE VIEW on DOS: 08/31/24, DI CHEST,SINGLE VIEW on DOS: 08/30/24, XR CHEST 1 VIEW on DOS: 11/13/23 FINDINGS: LUNGS AND PLEURAL SPACES: Right-sided subcu emphysema. HEART: Unremarkable. No cardiomegaly. MEDIASTINUM: Unremarkable. Normal mediastinal contour. BONES/JOINTS: Unremarkable. No acute fracture. TUBES, LINES AND DEVICES: Right-sided chest tube. No pneumothorax. OTHER FINDINGS: . . . IMPRESSION: Right-sided chest tube. No pneumothorax.
[2024-09-02 06:56] LABS: ALANINE AMINOTRANSFERASE 18 U/L (12-78); ALBUMIN 3.1 G/DL (3.4-5.0); ALBUMIN/GLOBULIN RATIO 0.8 (1.1-1.5); ALKALINE PHOSPHATASE 76 IU/L (46-116); ANION GAP 5 (8-16); ASPARTATE AMINO TRANSFERASE 21 U/L (10-37); BILIRUBIN,TOTAL 1.1 MG/DL (0.1-1.0); BLOOD UREA NITROGEN 12 MG/DL (7-18); BUN/CREATININE RATIO 19.7 (10.0-20.0); CALCIUM 8.8 MG/DL (8.5-10.1); CHLORIDE 103 MMOL/L (99-107); CREATININE 0.61 MG/DL (0.60-1.10); GLUCOSE 132 MG/DL (70-104); MAGNESIUM 2.2 MG/DL (1.5-2.4); PHOSPHORUS 2.2 MG/DL (2.3-4.5); POTASSIUM 4.1 MMOL/L (3.5-5.1); SODIUM 138 MMOL/L (135-145); TOTAL CARBON DIOXIDE 30.1 MMOL/L (24-32); TOTAL PROTEIN 6.8 G/DL (6.4-8.2); eCRCL 94 ML/MIN; eGFR > 90 ML/MIN
--- NOTE | 2024-09-02 17:01 | PROGRESS NOTE ---
Progress Note ID Providers to CC ~ Progress Note Progress Note: doing well/trial of waterseal PATI ANDERSON MD September 02, 2024 17:01
[2024-09-02] MEDS: magnesium hydroxide 30ml (MOM) UD suspension PO SCH (22:00)
[2024-09-03] VITALS (19 sets, daily range): BP systolic 118–160; BP diastolic 64–85; PULSE 74–102; RESP 12–20; TEMP 97.5–98.3; O2SAT 90–97
--- NOTE | 2024-09-03 07:33 | RADIOLOGY REPORT ---
CLINICAL INFORMATION: Pneumothorax. TECHNIQUE: Single AP portable chest radiograph was obtained. COMPARISON: DI CHEST,SINGLE VIEW on DOS: 09/02/24, DI CHEST,SINGLE VIEW on DOS: 09/01/24, DI CHEST,SINGL E VIEW on DOS: 08/31/24 FINDINGS: Right chest tube in stable position. Possible small residual right apical pneumothorax. Mild atelecta sis in the lung bases. Slightly decreased subcutaneous emphysema in the right chest wall right side o f the base of the neck. IMPRESSION: Stable positioning of the right chest tube. Possible small residual right apical pneumothorax. No ot her significant interval change.
--- NOTE | 2024-09-03 07:44 | RADIOLOGY REPORT ---
CLINICAL INFORMATION: Postop. TECHNIQUE: Single AP portable chest radiograph was obtained. COMPARISON: DI CHEST,SINGLE VIEW on DOS: 09/02/24, DI CHEST,SINGLE VIEW on DOS: 09/01/24, DI CHEST,SINGL E VIEW on DOS: 08/31/24 FINDINGS: Right chest tube remains in place. The right pneumothorax appears slightly larger or more conspicuou s compared to the prior exam, likely small to moderate no other significant interval change. IMPRESSION: Right chest tube in stable position. Right pneumothorax appears slightly larger or more conspicuous compared to the prior exam, likely small to moderate in size. Correlate with clinical findings. Short interval follow-up chest radiograph or CT could be considered if clinically indicated.
[2024-09-03 07:55] LABS: BASOPHILS # (AUTO) 0.1 X10'3 (0-0.2); BASOPHILS % (AUTO) 0.5 % (0-1); EOSINOPHILS # (AUTO) 0.2 X10'3 (0-0.9); EOSINOPHILS % (AUTO) 2.1 % (0-6); HEMATOCRIT 49.7 % (42.0-52.0); HEMOGLOBIN 16.6 g/dl (14.0-17.9); LYMPHOCYTES # (AUTO) 1.4 X10'3 (1.1-4.8); LYMPHOCYTES % (AUTO) 13.8 % (21-51); MEAN CORPUSCULAR HEMOGLOBIN 32.1 PG (27.0-31.0); MEAN CORPUSCULAR HGB CONC 33.5 g/dL (33.0-36.5); MEAN CORPUSCULAR VOLUME 95.8 FL (78-98); MEAN PLATELET VOLUME 9.5 FL (7.4-10.4); MONOCYTES # (AUTO) 0.9 X10'3 (0-0.9); MONOCYTES % (AUTO) 8.9 % (2-12); NEUTROPHILS # (AUTO) 7.9 X10'3 (1.8-7.7); NEUTROPHILS % (AUTO) 74.7 % (42-75); PLATELET COUNT 239 X10'3 (140-440); RED BLOOD COUNT 5.19 X10'6 (4.70-6.10); RED CELL DISTRIBUTION WIDTH 13.7 % (11.5-14.5); WHITE BLOOD COUNT 10.5 X10'3 (4.5-11.0)
[2024-09-03 08:26] LABS: ALANINE AMINOTRANSFERASE 19 U/L (12-78); ALBUMIN 3.2 G/DL (3.4-5.0); ALBUMIN/GLOBULIN RATIO 0.8 (1.1-1.5); ALKALINE PHOSPHATASE 78 IU/L (46-116); ANION GAP 7 (8-16); ASPARTATE AMINO TRANSFERASE 19 U/L (10-37); BILIRUBIN,TOTAL 1.1 MG/DL (0.1-1.0); BLOOD UREA NITROGEN 16 MG/DL (7-18); BUN/CREATININE RATIO 22.5 (10.0-20.0); CALCIUM 9.2 MG/DL (8.5-10.1); CHLORIDE 102 MMOL/L (99-107); CREATININE 0.71 MG/DL (0.60-1.10); GLUCOSE 131 MG/DL (70-104); MAGNESIUM 2.4 MG/DL (1.5-2.4); PHOSPHORUS 2.4 MG/DL (2.3-4.5); POTASSIUM 4.1 MMOL/L (3.5-5.1); SODIUM 139 MMOL/L (135-145); TOTAL CARBON DIOXIDE 30.1 MMOL/L (24-32); eCRCL 81 ML/MIN; eGFR > 90 ML/MIN
[2024-09-03] MEDS ORDERED: albuterol 2.5 MG/3 ML nebule NEB PRN (13:45)
[2024-09-04] VITALS (19 sets, daily range): BP systolic 111–157; BP diastolic 66–98; PULSE 74–95; RESP 13–18; TEMP 97.3–98.3; O2SAT 90–98
--- NOTE | 2024-09-04 06:21 | RADIOLOGY REPORT ---
CHEST RADIOGRAPH Indication: POST OP Technique: Single frontal view of the chest was obtained COMPARISON: DI CHEST,SINGLE VIEW on DOS: 09/03/24, DI CHEST,SINGLE VIEW on DOS: 09/02/24, DI CHEST,SINGLE VIEW on DOS: 09/02/24, DI CHEST,SINGLE VIEW on DOS: 09/01/24, DI CHEST,SINGLE VIEW on DOS: 08/31/24 FINDINGS: Lines and Tubes: Right chest tube in satisfactory position. Lungs: Right lung volume loss. Pleura: No effusion. No pneumothorax. Cardiomediastinal contours: Subcutaneous emphysema along the right chest wall. Bones: Unremarkable IMPRESSION: No appreciable pneumothorax.
[2024-09-04 06:54] LABS: BASOPHILS % (AUTO) 0.4 % (0-1); EOSINOPHILS # (AUTO) 0.4 X10'3 (0-0.9); EOSINOPHILS % (AUTO) 3.7 % (0-6); HEMATOCRIT 47.4 % (42.0-52.0); HEMOGLOBIN 15.9 g/dl (14.0-17.9); LYMPHOCYTES # (AUTO) 1.2 X10'3 (1.1-4.8); LYMPHOCYTES % (AUTO) 12.1 % (21-51); MEAN CORPUSCULAR HEMOGLOBIN 32.1 PG (27.0-31.0); MEAN CORPUSCULAR HGB CONC 33.6 g/dL (33.0-36.5); MEAN CORPUSCULAR VOLUME 95.5 FL (78-98); MEAN PLATELET VOLUME 9.3 FL (7.4-10.4); MONOCYTES # (AUTO) 0.9 X10'3 (0-0.9); MONOCYTES % (AUTO) 9.6 % (2-12); NEUTROPHILS # (AUTO) 7.1 X10'3 (1.8-7.7); NEUTROPHILS % (AUTO) 74.2 % (42-75); PLATELET COUNT 242 X10'3 (140-440); RED BLOOD COUNT 4.96 X10'6 (4.70-6.10); RED CELL DISTRIBUTION WIDTH 13.9 % (11.5-14.5); WHITE BLOOD COUNT 9.5 X10'3 (4.5-11.0)
[2024-09-04 07:23] LABS: ALANINE AMINOTRANSFERASE 18 U/L (12-78); ALBUMIN 2.9 G/DL (3.4-5.0); ALBUMIN/GLOBULIN RATIO 0.8 (1.1-1.5); ALKALINE PHOSPHATASE 71 IU/L (46-116); ANION GAP 9 (8-16); ASPARTATE AMINO TRANSFERASE 15 U/L (10-37); BILIRUBIN,TOTAL 0.9 MG/DL (0.1-1.0); BLOOD UREA NITROGEN 20 MG/DL (7-18); BUN/CREATININE RATIO 27.4 (10.0-20.0); CALCIUM 8.6 MG/DL (8.5-10.1); CHLORIDE 103 MMOL/L (99-107); CREATININE 0.73 MG/DL (0.60-1.10); GLUCOSE 126 MG/DL (70-104); MAGNESIUM 2.5 MG/DL (1.5-2.4); PHOSPHORUS 2.8 MG/DL (2.3-4.5); POTASSIUM 3.6 MMOL/L (3.5-5.1); SODIUM 141 MMOL/L (135-145); TOTAL CARBON DIOXIDE 29.1 MMOL/L (24-32); TOTAL PROTEIN 6.5 G/DL (6.4-8.2); eCRCL 79 ML/MIN; eGFR > 90 ML/MIN
[2024-09-04] MEDS: tamsulosin 0.4mg capsule PO SCH (09:57)
[2024-09-04] MEDS: finasteride 5mg tablet PO SCH (09:58)
[2024-09-04] MEDS: Fluticasone/Umeclidin/Vilanter (Trelegy Ellipta 100-62.5-25) IH SCH (09:58)
--- NOTE | 2024-09-04 13:58 | PROGRESS NOTE ---
Progress Note ID Providers to CC ~ Progress Note Progress Note: no complaints/vss/lungs-? small leak/cxr improved a/p 1. s/p rul-doing well/cont suction PATI ANDERSON MD September 04, 2024 13:58
[2024-09-04] MEDS: enoxaparin 40mg/0.4ml syringe SUBCUT SCH (19:52)
[2024-09-05] VITALS (20 sets, daily range): BP systolic 111–131; BP diastolic 63–77; PULSE 73–100; RESP 8–20; TEMP 97.2–98.1; O2SAT 91–98
--- NOTE | 2024-09-05 06:05 | RADIOLOGY REPORT ---
CHEST RADIOGRAPH Indication: POST OP Technique: Single frontal view of the chest was obtained COMPARISON: DI CHEST,SINGLE VIEW on DOS: 09/04/24, DI CHEST,SINGLE VIEW on DOS: 09/03/24, DI CHEST,SINGLE VIEW on DOS: 09/02/24, DI CHEST,SINGLE VIEW on DOS: 09/02/24, DI CHEST,SINGLE VIEW on DOS: 09/01/24 FINDINGS: Lines and Tubes: Right chest tube is stable in position. Lungs: Small right pleural effusion is stable in appearance. Interval decrease in right hemithoracic subcutaneous emphysema. The left lung is clear. No pneumothorax. Cardiomediastinal contours: Unremarkable Bones: Unremarkable IMPRESSION: 1. Stable small left pleural effusion with chest tube in stable position. No evidence of residual pn eumothorax. 2. Interval decrease in right hemithoracic subcutaneous emphysema.
--- NOTE | 2024-09-05 13:07 | PROGRESS NOTE ---
Progress Note ID Providers to CC ~ Progress Note Progress Note: air leak improved/trial of waterseal PATI ANDERSON MD September 05, 2024 13:07
--- NOTE | 2024-09-05 15:12 | RADIOLOGY REPORT ---
CHEST RADIOGRAPH Indication: ptx Technique: Single frontal view of the chest was obtained COMPARISON: DI CHEST,SINGLE VIEW on DOS: 09/05/24, DI CHEST,SINGLE VIEW on DOS: 09/04/24, DI CHEST,SINGLE VIEW on DOS: 09/03/24, DI CHEST,SINGLE VIEW on DOS: 09/02/24, DI CHEST,SINGLE VIEW on DOS: 09/02/24 FINDINGS: Lines and Tubes: Right chest tube in-situ. Lungs: Clear Pleura: No effusion. No pneumothorax. Cardiomediastinal contours: Subcutaneous emphysema along the right chest wall. Bones: Unremarkable IMPRESSION: No appreciable pneumothorax with right chest tube in-situ.
[2024-09-05] MEDS: furosemide 20 MG/2 ML vial IV ONE (23:27)
[2024-09-06] VITALS (21 sets, daily range): BP systolic 118–131; BP diastolic 67–74; PULSE 81–106; RESP 14–20; TEMP 97.3–98.2; O2SAT 90–96
[2024-09-06 04:11] LABS: BASOPHILS % (AUTO) 0.5 % (0-1); EOSINOPHILS # (AUTO) 0.4 X10'3 (0-0.9); EOSINOPHILS % (AUTO) 4.8 % (0-6); HEMATOCRIT 46.8 % (42.0-52.0); HEMOGLOBIN 15.7 g/dl (14.0-17.9); LYMPHOCYTES # (AUTO) 1.2 X10'3 (1.1-4.8); LYMPHOCYTES % (AUTO) 12.9 % (21-51); MEAN CORPUSCULAR HEMOGLOBIN 31.9 PG (27.0-31.0); MEAN CORPUSCULAR HGB CONC 33.5 g/dL (33.0-36.5); MEAN CORPUSCULAR VOLUME 95.4 FL (78-98); MEAN PLATELET VOLUME 9.2 FL (7.4-10.4); MONOCYTES # (AUTO) 0.8 X10'3 (0-0.9); MONOCYTES % (AUTO) 8.3 % (2-12); NEUTROPHILS # (AUTO) 6.6 X10'3 (1.8-7.7); NEUTROPHILS % (AUTO) 73.5 % (42-75); PLATELET COUNT 255 X10'3 (140-440); RED CELL DISTRIBUTION WIDTH 13.6 % (11.5-14.5)
[2024-09-06 04:19] LABS: ALANINE AMINOTRANSFERASE 19 U/L (12-78); ALBUMIN 2.6 G/DL (3.4-5.0); ALBUMIN/GLOBULIN RATIO 0.7 (1.1-1.5); ALKALINE PHOSPHATASE 72 IU/L (46-116); ANION GAP 4 (8-16); ASPARTATE AMINO TRANSFERASE 10 U/L (10-37); BILIRUBIN,TOTAL 0.9 MG/DL (0.1-1.0); BLOOD UREA NITROGEN 19 MG/DL (7-18); BUN/CREATININE RATIO 23.5 (10.0-20.0); CALCIUM 8.5 MG/DL (8.5-10.1); CHLORIDE 100 MMOL/L (99-107); CREATININE 0.81 MG/DL (0.60-1.10); GLUCOSE 129 MG/DL (70-104); MAGNESIUM 1.9 MG/DL (1.5-2.4); PHOSPHORUS 2.9 MG/DL (2.3-4.5); POTASSIUM 3.4 MMOL/L (3.5-5.1); SODIUM 139 MMOL/L (135-145); TOTAL CARBON DIOXIDE 34.6 MMOL/L (24-32); TOTAL PROTEIN 6.1 G/DL (6.4-8.2); eCRCL 71 ML/MIN; eGFR > 90 ML/MIN
--- NOTE | 2024-09-06 21:32 | PROGRESS NOTE ---
Progress Note ID Providers to CC ~ Progress Note Progress Note: no complaints/vss/lungs-no leak/cxr neg for ptx a/p 1. s/p rul-doing well/repeat cxr in am PATI ANDERSON MD September 06, 2024 21:32
[2024-09-06] MEDS ORDERED: magnesium sulf-water 2g/50mL 50 ML IV PRN (21:40)
[2024-09-06] MEDS ORDERED: magnesium sulf-water 4G/100mL 100 ML IV PRN (21:40)
[2024-09-06] MEDS ORDERED: potassium Cl 20 mEq SR tablet PO PRN (21:40)
[2024-09-06] MEDS: potassium Cl 20 mEq SR tablet PO PRN (22:10)
[2024-09-07] VITALS (20 sets, daily range): BP systolic 109–123; BP diastolic 64–77; PULSE 73–108; RESP 13–22; TEMP 97.4–98.3; O2SAT 92–98
[2024-09-07 06:58] LABS: MAGNESIUM 2.4 MG/DL (1.5-2.4); POTASSIUM 4.3 MMOL/L (3.5-5.1)
[2024-09-07 07:50] LABS: BASOPHILS % (AUTO) 0.4 % (0-1); EOSINOPHILS # (AUTO) 0.3 X10'3 (0-0.9); EOSINOPHILS % (AUTO) 2.9 % (0-6); HEMATOCRIT 44.9 % (42.0-52.0); HEMOGLOBIN 15.1 g/dl (14.0-17.9); LYMPHOCYTES # (AUTO) 1.2 X10'3 (1.1-4.8); LYMPHOCYTES % (AUTO) 11.3 % (21-51); MEAN CORPUSCULAR HEMOGLOBIN 32.1 PG (27.0-31.0); MEAN CORPUSCULAR HGB CONC 33.6 g/dL (33.0-36.5); MEAN CORPUSCULAR VOLUME 95.5 FL (78-98); MEAN PLATELET VOLUME 8.5 FL (7.4-10.4); MONOCYTES # (AUTO) 0.9 X10'3 (0-0.9); MONOCYTES % (AUTO) 8.4 % (2-12); NEUTROPHILS # (AUTO) 8.2 X10'3 (1.8-7.7); PLATELET COUNT 276 X10'3 (140-440); RED CELL DISTRIBUTION WIDTH 13.1 % (11.5-14.5); WHITE BLOOD COUNT 10.6 X10'3 (4.5-11.0)
[2024-09-07] MEDS: K and/or MAG REPLACEMENT MC SCH (08:00)
[2024-09-07 08:09] LABS: ALANINE AMINOTRANSFERASE 22 U/L (12-78); ALBUMIN 2.5 G/DL (3.4-5.0); ALBUMIN/GLOBULIN RATIO 0.7 (1.1-1.5); ALKALINE PHOSPHATASE 70 IU/L (46-116); ANION GAP 4 (8-16); ASPARTATE AMINO TRANSFERASE 18 U/L (10-37); BILIRUBIN,TOTAL 0.8 MG/DL (0.1-1.0); BLOOD UREA NITROGEN 16 MG/DL (7-18); BUN/CREATININE RATIO 20.3 (10.0-20.0); CALCIUM 8.8 MG/DL (8.5-10.1); CHLORIDE 104 MMOL/L (99-107); CREATININE 0.79 MG/DL (0.60-1.10); GLUCOSE 136 MG/DL (70-104); MAGNESIUM 2.2 MG/DL (1.5-2.4); POTASSIUM 4.4 MMOL/L (3.5-5.1); SODIUM 140 MMOL/L (135-145); TOTAL CARBON DIOXIDE 31.7 MMOL/L (24-32); TOTAL PROTEIN 6.2 G/DL (6.4-8.2); eCRCL 73 ML/MIN; eGFR > 90 ML/MIN
--- NOTE | 2024-09-07 08:33 | RADIOLOGY REPORT ---
EXAM: DI CHEST,SINGLE VIEW Indication: ptx Technique: Single frontal view of the chest was obtained Comparison: DI CHEST,SINGLE VIEW on DOS: 09/05/24, DI CHEST,SINGLE VIEW on DOS: 09/05/24, DI CHEST,SINGLE VIEW on DOS: 09/04/24, DI CHEST,SINGLE VIEW on DOS: 09/03/24, DI CHEST,SINGLE VIEW on DOS: 09/02/24 FINDINGS: Lines and Tubes: Right chest tube is visualized. Lungs: Interval increase in size of small right pneumothorax. Right lung consolidative opacities. Cardiomediastinal contours: Unremarkable Bones: No acute osseous abnormality. IMPRESSION: Right chest tube is visualized. Interval increase in size of small right pneumothorax.
--- NOTE | 2024-09-07 14:59 | RADIOLOGY REPORT ---
Procedure: CT CT CHEST [place] Study Date and Requested Time: 09/07/2024 02:17 P M History ptx S/P LOBECTOMY RECENTLY Comparison: CT CT CHEST on DOS: 08/30/24, CT CT CHEST ION on DOS: 03/25/24, CT CHEST W/O CONTRAST on D OS: 10/17/23 Dose: CTDI: 11.31 mGy DLP: 472.98 mGycm Technique: Multiplanar images obtained through the chest without contrast Findings: The thyroid gland is unremarkable. Heart size is within normal limits. No evidence of aortic aneurysm. Dilatation of the pulmonary trunk up to 31 mm which may be seen with pulmonary arterial hypertension. Calcified right hilar lymph nodes. A right-sided lower chest wall approach chest tube is noted terminating over the right lung apex with a about 30% right-sided pneumothorax. Severe emphysematous changes of bilateral lungs. Right lower l obe opacities. There appears to be right upper lobectomy. There is air within the superior right nasir or fissure with internal nodularity. 0.8 x 0.5 cm nodular density of the right superior lower lobe. Calcified granulomas within the lower lobe and Left upper lobe. Effusion. There is right chest wall [id number] subcutaneous emphysema which is most likely associated wit h the chest tube placement. Destructive osseous lesions are noted. Calcified granulomas within the liver and spleen. Gallbladder is contracted. Small hiatal hernia. Oth erwise partial view of the upper abdomen is unremarkable. Impression: There is about 30% right-sided pneumothorax with a right chest tube noted terminating over the right lung apex. Postsurgical changes of right upper lobectomy. There is air within the superior right major fissure with internal nodularity. 0.8 x 0.5 cm nodular d ensity over the right superior lower lobe. Severe emphysematous changes of bilateral lungs with right lower lobe opacities which may represent p neumonia in the right clinical setting.
--- NOTE | 2024-09-07 18:33 | PROGRESS NOTE ---
Progress Note ID Providers to CC ~ Progress Note Progress Note: no complaints/vss/? leak/ct-small ptx a/p 1. s/p rul-doing well/expect dc in am with ct with PATI Cedillo MD September 07, 2024 18:33
[2024-09-08] VITALS (20 sets, daily range): BP systolic 115–137; BP diastolic 62–78; PULSE 72–93; RESP 15–20; TEMP 97.4–98.3; O2SAT 91–96
[2024-09-08 06:25] LABS: MAGNESIUM 2.2 MG/DL (1.5-2.4); POTASSIUM 4.1 MMOL/L (3.5-5.1)
--- NOTE | 2024-09-08 10:30 | RADIOLOGY REPORT ---
CHEST RADIOGRAPH Indication: ptx Technique: Single frontal view of the chest was obtained Comparison: DI CHEST,SINGLE VIEW on DOS: 09/07/24, DI CHEST,SINGLE VIEW on DOS: 09/05/24, DI CHEST,SINGLE VIEW on DOS: 09/05/24, DI CHEST,SINGLE VIEW on DOS: 09/04/24, DI CHEST,SINGLE VIEW on DOS: 09/03/24 FINDINGS: Lines and Tubes: None Lungs: Postsurgical changes involving the right lung. Severe emphysema. Right lower lobe opacities ar e unchanged. Pleura: No effusion. Trace right apical pneumothorax, decreased in size when compared to prior study. Right chest tube in place. Cardiomediastinal contours: Unremarkable Bones: No acute osseous abnormality. IMPRESSION: Trace right apical pneumothorax, decreased in size when compared to prior study. Right chest tube in place. Postsurgical changes involving the right lung. Severe emphysema. Right lower lobe opacities are uncha nged.
--- NOTE | 2024-09-08 19:32 | PROGRESS NOTE ---
Progress Note ID Providers to CC ~ Progress Note Progress Note: doing well/cxr noted/home in am PATI ANDERSON MD September 08, 2024 19:32
[2024-09-09] VITALS (14 sets, daily range): BP systolic 118–142; BP diastolic 61–70; PULSE 74–107; RESP 16–19; TEMP 97.4–98.5; O2SAT 90–99
[2024-09-09 06:25] LABS: MAGNESIUM 2.1 MG/DL (1.5-2.4); POTASSIUM 4.1 MMOL/L (3.5-5.1)
--- NOTE | 2024-09-09 14:13 | PROGRESS NOTE ---
Progress Note ID Providers to CC ~ Progress Note Progress Note: doing well/dc PATI ANDERSON MD September 09, 2024 14:13
== END 2024-09-09 20:05 | disposition home or self-care (01) | DRG 164 ==
LOC: PAS IN 05:33 → CICU 2S 15:43 → PCU 3S 08-31 12:50
PROVIDERS: ADMIT Surgery; ATTEND Surgery
PROC: 0BTC4ZZ Resection of Right Upper Lung Lobe, Percutaneous Endoscopic Approach (ICD-10-PCS; 2024-08-30)
PROC: 07B74ZZ Excision of Thorax Lymphatic, Percutaneous Endoscopic Approach (ICD-10-PCS; 2024-08-30)
PROC: 8E0W4CZ Robotic Assisted Procedure of Trunk Region, Percutaneous Endoscopic Approach (ICD-10-PCS; 2024-08-30)
PROC: 0W9930Z Drainage of Right Pleural Cavity with Drainage Device, Percutaneous Approach (ICD-10-PCS; 2024-08-30)
PROC: 0BTF4ZZ Resection of Right Lower Lung Lobe, Percutaneous Endoscopic Approach (ICD-10-PCS; principal; 2024-08-30 09:22)
DX: C34.11 Malignant neoplasm of upper lobe, right bronchus or lung (principal); J93.82 Other air leak
CPT/HCPCS: 36415; 36600; 71045; 71250; 80053; 81003; 82803; 82948; 83735; 84100; 84132; 85018; 85025; 85610; 85730; 86885; 86900; 86901; 87081; 88307; 88309; 88311; 88331; 94640; 94760; 97116; 97161; 97530; A4358; A4565; A4615; A4618; A6222; A6223; A6253; A6258; A6402; A6449; A7000; A7048; C1758; C9250; G0378; J0131; J0360; J0666; J0690; J1100; J1171; J1650; J1885; J1938; J2003; J2250; J2405; J2704; J2919; J3010; J3490; J7120; P9045